=== PATIENT | female | born 1990 | race Caucasian/White ===

== ENCOUNTER 2021-07-24 13:52 | Emergency (ER) | payer MEDICAID, SELFPAY ==
[~2021-07-24] VITALS: Ht 157.5 cm; Wt 127.0 kg
[~2021-07-24 13:52] MED LIST: ALBU17AE26; MOME220A2 IH; MONT10TA22 PO
--- NOTE | 2021-07-24 14:10 | NUR ---
PER REPORT, DR HALE SAW PT FOR EXAM
[2021-07-24 14:22] VITALS: BP_SYST 112
[2021-07-24] MEDS ORDERED: predniSONE 20 MG TABLET PO ONE (14:30)
[2021-07-24] MEDS ORDERED: SOTROVIMAB 500 MG in NS 100 ML IV ONE (15:15)
[2021-07-24 16:19] LABS: BASOPHILS % (AUTO) 0.4 % (0.0-2.0); HEMATOCRIT 34.6 % (36-48); HEMOGLOBIN 10.9 g/dL (12.0-16.0); LYMPHOCYTES # (AUTO) 0.7 K/uL (1.0-5.5); LYMPHOCYTES % (AUTO) 7.7 % (20.5-51.5); MEAN CORPUSCULAR HEMOGLOBIN 22 pg (27-31); MEAN CORPUSCULAR HGB CONC 32 % (32-36); MEAN CORPUSCULAR VOLUME 69 fL (79.0-98.0); MONOCYTES # (AUTO) 0.2 K/uL (0.0-1.0); MONOCYTES % (AUTO) 2.8 % (1.7-9.3); NEUTROPHILS # (AUTO) 7.6 K/uL (1.8-7.7); NEUTROPHILS % (AUTO) 89.1 % (40.0-70.0); PLATELET COUNT (AUTO) 276 K/uL (130-430); RED BLOOD CELL COUNT(AUTO) 5.02 MIL/uL (4.2-6.2); RED CELL DISTRIBUTION WIDTH 18.2 % (9.0-15.0); WHITE BLOOD COUNT (AUTO) 8.5 K/uL (4.8-10.8)
[2021-07-24 16:24] LABS: CALCIUM 8.7 mg/dL (8.4-11.0); CREATININE 0.79 mg/dL (0.55-1.30); POTASSIUM 4.1 mmol/L (3.5-5.1)
[2021-07-24 16:30] LABS: ALBUMIN 3.4 g/dL (3.4-4.8); TOTAL BILIRUBIN 0.4 mg/dL (0.0-1.0)
--- NOTE | 2021-07-24 16:30 | NUR ---
PT COMES TO ER WITH C/O COUGH, GENERAL MALAISE AND MILD SOB X 1 WEEK, REPORTS BEING TESTED POSITIVE FOR COVID DAYS AGO. FAMILY AT BEDSIDE..
[2021-07-24] MEDS ORDERED: ALBU8.5H8 INH (17:25)
[2021-07-24] MEDS ORDERED: ALBU2.5V7 INH (17:25)
[2021-07-24] MEDS ORDERED: PRED20TA PO (17:25)
[2021-07-24] MEDS ORDERED: ZIT250 PO (17:25)
[2021-07-24] MEDS ORDERED: predniSONE 20 MG TABLET ONE (17:29)
[2021-07-24] MEDS ORDERED: cefTRIAXone 1 GM VIAL IM ONE (17:30)
--- NOTE | 2021-07-24 18:02 | NUR ---
Patient given written and verbal discharge instructions and verbalizes understanding. ER MD discussed with patient the results and treatment provided. Patient in stable condition. ID arm band removed. Rx of ALBUTEROL, PREDNISONE, AZITHROMYCIN given. Patient educated on pain management and to follow up with PMD. Pain Scale . Opportunity for questions provided and answered. Medication side effect fact sheet provided.
[2021-07-24 18:07] VITALS: BP_SYST 121
== END 2021-07-24 18:02 | disposition home or self-care (01) ==
LOC: SED 13:52
DX: J18.9 Pneumonia, unspecified organism (principal); J45.901 Unspecified asthma with (acute) exacerbation; Z20.822 Contact with and (suspected) exposure to COVID-19; Z88.5 Allergy status to narcotic agent; Z79.899 Other long term (current) drug therapy
CPT/HCPCS: 36415; 71045; 80053; 85025; 87426; 96372; 99284; J0696; J7512

== ENCOUNTER 2022-06-25 17:08 | Emergency (ER) | payer MEDICAID ==
[~2022-06-25] VITALS: Ht 157.5 cm; Wt 136.1 kg
[~2022-06-25 17:08] MED LIST changes: +ALBU2.5V7 INH; +ALBU8.5H8 INH; +PRED20TA PO; +ZIT250 PO
[2022-06-25 17:20] VITALS: BP_SYST 154
[2022-06-25 19:30] VITALS: BP_SYST 154
--- NOTE | 2022-06-25 19:30 | NUR ---
Patient presents to ED from home with c/o generalized malaise x3days and menses x1 month. Patient reports pain 0/10 at this time. Patient has hx of asthma and DM. ER MD Langston made aware.
--- NOTE | 2022-06-25 19:55 | NUR ---
JUAN AGARWAL Kwaw at bedside.
--- NOTE | 2022-06-25 20:00 | NUR ---
Lab at bedside.
--- NOTE | 2022-06-25 22:00 | NUR ---
Patient ambulatory to US and accompanied by radiology.
--- NOTE | 2022-06-25 22:30 | NUR ---
Patient self ambulatory back to waiting room accompanied by radiology.
[2022-06-25 22:49] LABS: BASOPHILS % (AUTO) 0.3 % (0.0-2.0); EOSINOPHILS # (AUTO) 0.1 K/uL (0.0-0.4); EOSINOPHILS % (AUTO) 0.5 % (0.0-4.0); HEMATOCRIT 31.6 % (36-48); HEMOGLOBIN 9.7 g/dL (12.0-16.0); LYMPHOCYTES # (AUTO) 2.9 K/uL (1.0-5.5); LYMPHOCYTES % (AUTO) 21.9 % (20.5-51.5); MEAN CORPUSCULAR HEMOGLOBIN 25 pg (27-31); MEAN CORPUSCULAR HGB CONC 31 % (32-36); MEAN CORPUSCULAR VOLUME 80 fL (79.0-98.0); MONOCYTES # (AUTO) 0.7 K/uL (0.0-1.0); MONOCYTES % (AUTO) 5.4 % (1.7-9.3); NEUTROPHILS # (AUTO) 9.4 K/uL (1.8-7.7); NEUTROPHILS % (AUTO) 71.9 % (40.0-70.0); PLATELET COUNT (AUTO) 400 K/uL (130-430); RED BLOOD CELL COUNT(AUTO) 3.95 MIL/uL (4.2-6.2); RED CELL DISTRIBUTION WIDTH 19.3 % (9.0-15.0); WHITE BLOOD COUNT (AUTO) 13.1 K/uL (4.8-10.8)
[2022-06-25 22:54] LABS: CREATININE 0.7 mg/dL (0.55-1.30)
[2022-06-25 23:09] LABS: ALBUMIN 3.8 g/dL (3.4-4.8); TOTAL BILIRUBIN 0.3 mg/dL (0.0-1.0)
[2022-06-26] MEDS ORDERED: MEDR10TA72 PO (00:55)
--- NOTE | 2022-06-26 01:00 | NUR ---
Patient given written and verbal discharge instructions and verbalizes understanding. ER MD discussed with patient the results and treatment provided. Patient in stable condition. ID arm band removed. Rx of Provera given. Patient educated on pain management and to follow up with PMD. Pain Scale 0/10. Opportunity for questions provided and answered. Medication side effect fact sheet provided. Patient A/Ox4, VSS, ambulatory, resp even and unlabored. Patient in stable condition upon discharge.
== END 2022-06-26 01:00 | disposition home or self-care (01) ==
LOC: SED 17:08
DX: N93.8 Other specified abnormal uterine and vaginal bleeding (principal); J45.909 Unspecified asthma, uncomplicated; Z88.5 Allergy status to narcotic agent; Z88.6 Allergy status to analgesic agent; Z79.899 Other long term (current) drug therapy
CPT/HCPCS: 36415; 76856-TC; 80053; 84702; 85025; 99284